=== PATIENT | female | born 1990 | race Hispanic/Latino ===

== ENCOUNTER 2024-10-26 09:19 | Emergency (ER) | payer SELFPAY ==
[2024-10-26 09:32] VITALS: BP 120/80
--- NOTE | 2024-10-26 10:49 | ED.GENMED ---
History of Present Illness
<Basilio Simpson MD, Resident - Last Filed: 10/26/24 13:21>
General
Chief Complaint: Musculo-Skeletal Complaint
Time Seen by Provider: 10/26/24 10:09
History of Present Illness
History of Present Illness:
This is a [place]-speaking 34-year-old female who presents to the ED complaining of left knee pain ongoing for the past 2 months. Patient does remember the pain started but she reports she felt moderate pain in the left knee 2 months ago and did
not seek care. She has been using Tylenol for pain until yesterday when pain became severe which she rates as an 8 out of 10. She can bear weight on the extremity. She has had no fever, chills. She denies any trauma, fracture, knee surgery.
Past History
<Basilio Simpson MD, Resident - Last Filed: 10/26/24 13:21>
Social History
Tobacco: Non-smoker
Alcohol: None
Drug: None
Phy Exam
<Basilio Simpson MD, Resident - Last Filed: 10/26/24 13:21>
General Physical Exam
General Presentation: well appearing and no apparent distress
General Mental: alert
Pulmonary Exam
Pulmonary Exam: lungs clear and no respiratory distress
Musculoskeletal Exam
Musculoskeletal Exam: other (On inspection of the left knee, no redness no warmth no deformity. Gentle palpation with minimal tenderness of left knee. Full range of motion without pain.)
Psychiatric Exam
Psychiatric Exam: normal mood/affect
Course
<Basilio Simpson MD, Resident - Last Filed: 10/26/24 13:21>
Orders/Labs/Results
Orders:
Orders
10/26/24 09:35
Knee, Left 4 or More Views [CR Knee - Left 4 Or More View*] Urgent
Comment:
Reason For Exam: pain
10/26/24 11:10
Ketorolac [Toradol] 15 mg IM NOW STA
Vital Signs
Initial and Last Documented VS:
Initial Vital Signs
Temp Pulse Resp BP Pulse Ox
97.8 F 67 16 120/80 98
10/26/24 09:32 10/26/24 09:32 10/26/24 09:32 10/26/24 09:32 10/26/24 09:32
Last Documented Vital Signs
Temp Pulse Resp BP Pulse Ox
97.8 F 67 16 120/80 98
10/26/24 09:32 10/26/24 09:32 10/26/24 09:32 10/26/24 09:32 10/26/24 09:32
<Dom Vega, DO - Last Filed: 10/26/24 13:38>
Orders/Labs/Results
Orders:
Orders
10/26/24 09:35
Knee, Left 4 or More Views [CR Knee - Left 4 Or More View*] Urgent
Comment:
Reason For Exam: pain
10/26/24 11:10
Ketorolac [Toradol] 15 mg IM NOW STA
Vital Signs
Initial and Last Documented VS:
Initial Vital Signs
Temp Pulse Resp BP Pulse Ox
97.8 F 67 16 120/80 98
10/26/24 09:32 10/26/24 09:32 10/26/24 09:32 10/26/24 09:32 10/26/24 09:32
Last Documented Vital Signs
Temp Pulse Resp BP Pulse Ox
97.8 F 67 16 120/80 98
10/26/24 09:32 10/26/24 09:32 10/26/24 09:32 10/26/24 09:32 10/26/24 09:32
<Basilio Simpson MD, Resident - Last Filed: 10/26/24 13:21>
MDM/Problems Addressed
MDM/Problems Addressed:
This is a 34-year-old female who presents to the ED complaining of left knee pain ongoing for the past 2 months. Evaluation with a knee x-ray showed no acute osseous abnormalities, although Small suprapatellar joint effusion and Small calcification
within the medial joint space seen on x-ray. Physical examination findings showed no redness, no warmth, no deformity. Minimal tenderness on gentle palpation. No fever, no chills. At this time we will discharge patient to follow-up with primary
care. Consider MRI as an outpatient should symptoms continue to worsen. Will administer 50 mg IM Toradol now. Tylenol for pain. No indication to tap knee in the ED today. Also advised to follow-up with Ortho as an outpatient.
<Basilio Simpson MD, Resident - Last Filed: 10/26/24 13:21>
*Critical Care Note
Total Time (30-74mins, 75-104mins- exclusive of procedures): Not Applicable
<Dom Vega, - Last Filed: 10/26/24 13:38>
*Radiology
Radiology exam reviewed: radiology read reviewed (Left knee x-ray small suprapatellar joint effusion, possible chondrocalcinosis)
ED Attending Note
<Basilio Simpson MD, Resident - Last Filed: 10/26/24 13:21>
-
Portions of this chart may have been created with voice recognition software.� Occasional wrong word or��sound alike� substitutions may have occurred due to the inherent limitations of voice recognition software.
<Dom Vega, - Last Filed: 10/26/24 13:38>
ED Attending Note
Patient seen and examined by attending physician: Yes
I performed a history and physical exam of patient and discussed management with resident, I reviewed resident's note and agree with documented findings and plan of care.: Yes
ED Attending Note:
I have reviewed and agree with history and treatment plan by Basilio Simpson MD. My exam revealed 34-year-old female with mild left knee tenderness, diffusely. Full range of patient. Minimal swelling, minimal effusion. Will discharge to
follow-up with orthopedics and primary care at [facility].
Discharge Plan
Departure
Patient Disposition: Home (Routine Discharge)
Date of Disposition: 10/26/24
Time of Disposition: 11:11
Patient with high blood pressure during this ER visit?: No
Discharge Problem:
Knee pain, left
Referrals:
Edgar Allan MD [Active] -
NONE,* [Family Provider] -
Sonia Aragon MD [Non-Admitting Privileges] -
Interventions
Interventions:
*Risk Screen - Suicide Last Done: 10/26/24 09:32
*General Assessment Last Done: 10/26/24 10:39
*Neglect/Abuse Screening Last Done: 10/26/24 09:32
*ED- Fall Risk Assessment Last Done: 10/26/24 10:39
*ED COVID-19 Vaccine History Last Done: 10/26/24 10:39
*Nursing Disposition Last Done: 10/26/24 11:21
ED-Musculoskeletal Assessment Last Done: 10/26/24 10:39
Discharge Date and Time
Discharge Date/Time: 10/26/24 11:22
Print Language: [place]AST [place]
[2024-10-26] MEDS: TORADOL 15 MG IM (11:15)
== END 2024-10-26 11:22 | disposition home or self-care (01) ==
LOC: EMR 09:19
PROVIDERS: EMERGENCY PHYSICIAN Emergency Medicine
DX: M25.562 Pain in left knee (principal)
CPT/HCPCS: 99284; 96372; 73564

== ENCOUNTER → 2025-01-04 12:22 | Outpatient (REF) | payer OTHER, SELFPAY ==
[2025-01-04 13:02] LABS: % Basophils 0.7 % (0-2); % Eosinophils 1.9 % (0-6); % Immature Granulocytes 0.1 % (0-0.5); % Lymphocytes 31.1 % (20.5-51.1); % Monocytes 7.8 % (1.7-9.3); % Neutrophils 58.4 % (42.2-75.2); Absolute Basophils 0.1 10^3/uL (0-0.2); Absolute Eosinophils 0.1 10^3/uL (0-0.7); Absolute Lymphocytes 2.4 10^3/uL (1.2-3.4); Absolute Monocytes 0.6 10^3/uL (0.1-0.6); Absolute Neutrophils 4.4 10^3/uL (1.4-6.5); Hematocrit 40.5 % (37.0-47.0); Hemoglobin 13.7 g/dL (12.0-16.0); Mean Corp Hgb Conc. 33.8 g/dL (33.0-37.0); Mean Corpuscular Hgb 30.4 pg (27.0-31.0); Mean Corpuscular Volume 89.8 fL (81.0-99.0); Mean Platelet Volume 11.5 fL (7.4-10.4); Nucleated Red Blood Cells % 0 %; Platelet Count 188 10^3/uL (130-400); Red Blood Cell Count 4.51 10^6/uL (4.20-5.40); Red Cell Dist. Width 12.9 % (11.5-14.5); White Blood Cell Count 7.6 10^3/uL (4.8-10.8)
[2025-01-04 14:19] LABS: ALT (SGPT) 26 U/L (0-35); AST (SGOT) 22 U/L (14-36); Albumin 4.3 g/dl (3.5-5.0); Alkaline Phosphatase 47 U/L (38-126); Blood Urea Nitrogen 12 mg/dl (7-17); Calcium 9.1 mg/dl (8.4-10.2); Carbon Dioxide 25 mmol/L (22-30); Chloride 110 mmol/L (98-107); Glucose 93 mg/dl (70-99); HDL Cholesterol 36 mg/dl; LDL Cholesterol, Calculated 88 mg/dl; Potassium 4.5 mmol/L (3.5-5.1); Sodium 143 mmol/L (135-145); Total Bilirubin 0.4 mg/dl (0.2-1.3); Total Cholesterol 152 mg/dl (50-199); Total Protein 7.5 g/dl (6.3-8.2); Triglyceride 141 mg/dl (10-149); Very Low Density Lipoprotein 28 mg/dl (0-30); eGFR > 60.00
[2025-01-04 14:35] LABS: TSH 0.77 uIU/ml (0.47-4.68)
== END ==
LOC: CLINIC 12:22
PROVIDERS: ATTENDING PHYSICIAN Physician Assistant Medical
DX: Z00.00 Encounter for general adult medical examination without abnormal findings (principal)
CPT/HCPCS: 36415; 80053; 80061; 84443; 85025

== ENCOUNTER → 2025-02-01 10:49 | Outpatient (REF) | payer OTHER, SELFPAY | LOC: CLINIC 10:49 | PROVIDERS: ATTENDING PHYSICIAN Physician Assistant Medical | DX: Z01.419 Encounter for gynecological examination (general) (routine) without abnormal findings (principal) | CPT/HCPCS: 87624 ==